=== PATIENT | female | born 1950 | race Caucasian/White ===

== ENCOUNTER 2018-06-23 14:14 | Inpatient (IN) | payer MEDICARE ==
[~2018-06-23] VITALS: Ht 162.6 cm; Wt 99.3 kg
--- NOTE | ~2018-06-23 | CN ---
PATIENT NAME:ROSSY FRIEND MEDICAL RECORD: [id number] : 54 LOCATION:D.MS Alberto2225 ADMIT DATE: 06/23/18 ACCOUNT: [id number] CONSULTING PHYSICIAN: CORINNA MATT MD REFERRING PHYSICIAN: TRISH RODRÍGUEZ MD DATE OF CONSULTATION: 06/24/2018 PSYCHIATRIC CONSULTATION IDENTIFYING DATA: The patient is 68 years old and she is admitted to the hospital on a voluntary basis. CHIEF COMPLAINT: None. HISTORY OF PRESENT ILLNESS: The patient apparently has diverticulitis and is admitted to the hospital. As an incidental finding, she has been nauseous, vomiting and very upset since her primary care doctor stopped the Haldol she has been taking for 15 years. She is now back on the Haldol, which I think is reasonable and appropriate. She has a history of being followed at the [facility] in [place] for schizophrenia and has been quite stable on her medications and for some reason, I think it was related to the overturning of staff there. She ended up with her primary care doctor who now has appropriately advised her about his concerns and has tried to taper the medications. MENTAL STATUS EXAMINATION: The patient is awake, alert and oriented to person, place, time and situation. Her mood is flat. Her affect is constricted. Thought processes are circumstantial. Memory, concentration, and abstraction abilities are mildly impaired. She denies any active intent to harm herself or others as well as overt psychotic symptoms. ASSETS: Supportive family members. LIABILITIES: Limited insight. DIAGNOSTIC IMPRESSION: Schizophrenia. PLAN: At this time, I think it is appropriate for the patient to be on Haldol. I would recommend 2 mg twice a day as a starting dose. She should have follow up with the psychiatrist. The patient is reporting depression, but she is not actually depressed. She is displaying negative symptoms associated with schizophrenia and it is different than a major depressive episode. She has had transient thoughts of self-harm, but that is in the past and certainly is not something I am acutely concerned about at this time. She has never tried to hurt herself and I think from a safety standpoint, the relative risks and benefit of the Haldol is in favor of her taking it since she has a history of becoming delusional without it and on the other hand has functioned very well with it. TRANSINT:[id number] Voice Confirmation ID: [id number] DOCUMENT ID: [id number] CONSULT REPORT [id number] ROSSY FRIEND PETER MD at 1210 CC: [id number] DICTATION DATE: 06/24/18 1312 SNOW SHOVELER: 06/24/18 1330 ADM IN [facility] [address] [place] [address]
[2018-06-23] MEDS ORDERED: ASPIRIN81 MG PO (14:24)
[2018-06-23] MEDS ORDERED: BUSPAR5 MG PO (14:24)
[2018-06-23] MEDS ORDERED: CATAPRES0.1 MG PO (14:25)
[2018-06-23] MEDS ORDERED: CATAPRES0.2 MG PO (14:25)
[2018-06-23] MEDS ORDERED: CALCIUM 250+D T1 TAB PO (14:25)
[2018-06-23] MEDS ORDERED: FOLIC ACID0.8 MG PO (14:26)
[2018-06-23] MEDS ORDERED: SYNTHROID50 MCG PO (14:26)
[2018-06-23] MEDS ORDERED: HALOPERIDOL2 MG PO (14:26)
[2018-06-23] MEDS ORDERED: COZAAR50 MG PO (14:27)
[2018-06-23] MEDS ORDERED: NAPROXEN250 MG PO (14:27)
[2018-06-23] MEDS ORDERED: TOPROL XL25 MG PO (14:27)
[2018-06-23] MEDS ORDERED: NITROSTAT0.4 MG SL (14:28)
[2018-06-23] MEDS ORDERED: ZOFRAN4 MG PO (14:28)
[2018-06-23] MEDS ORDERED: OMEPRAZOLE20 M1 PO (14:28)
[2018-06-23] MEDS ORDERED: OXYTROL PATCH1 PATCH PO (14:29)
[2018-06-23] MEDS ORDERED: PRAVACHOL40 MG PO (14:29)
[2018-06-23] MEDS ORDERED: PRAVACHOL20 MG (14:29)
[2018-06-23 14:51] LABS: BASOPHILS 0.4 % (0-2); EOSINOPHILS 1.2 % (0-7); HEMATOCRIT 38.8 % (36.0-48.0); HEMOGLOBIN 12.5 g/dL (12-16); IMMATURE GRANULOCYTES 0.3 % (0-5); LYMPHOCYTES 19.2 % (15-50); MCH 26.5 pg (26.0-34.0); MCHC 32.2 g/dL (31.0-37.0); MCV 82.4 fL (80.0-100.0); MEAN PLATELET VOLUME 9.6 fL (7.4-10.4); MONOCYTES 8.3 % (2-11); NEUTROPHILS 70.6 % (40-80); PLATELET COUNT 228 10x3/uL (130-400); RBC 4.71 10x6/uL (4.00-5.40); RDW 15.5 % (11.5-14.5); WBC 7.5 10x3/uL (4.8-10.8)
[2018-06-23 15:17] LABS: ALBUMIN 3.1 g/dL (3.4-5.0); ALKALINE PHOSPHATASE 94 U/L (46-116); ALT (SGPT) 40 U/L (10-68); BILIRUBIN - TOTAL 0.19 mg/dL (0.2-1.3); CALC OSMOLALITY 281 mosm/kg (275-300); CALCIUM 8.4 mg/dL (8.5-10.1); CARBON DIOXIDE 34.2 mmol/L (21.0-32.0); CHLORIDE - SERUM 101 mmol/L (98-107); CREATININE - SERUM 1.1 mg/dL (0.6-1.3); GLUCOSE 156 mg/dL (74-106); PROTEIN - SERUM 6.7 g/dL (6.4-8.2); PROTIME 12.8 SECONDS (11.6-15.0); SODIUM 141 mmol/L (136-145); UREA NITROGEN 7 mg/dL (7-18); eGFR NON AFRICAN AMERICAN 53 mL/min (90-120)
[2018-06-23 15:19] LABS: C-REACTIVE PROTEIN 0.8 mg/dL (0.0-0.9); LIPASE 71 U/L (73-393); PRO BNP 302 pg/mL (0-125); THYROID STIMULATING HORMONE 1.36 uIU/mL (0.36-3.74)
[2018-06-23 15:21] LABS: POTASSIUM - SERUM 2.9 mmol/L (3.5-5.1); TROPONIN-I < 0.017 ng/mL (0.000-0.060)
[2018-06-23 16:06] LABS: UDS - AMPHET NEGATIVE QUAL (NEGATIVE); UDS - BARB POSITIVE QUAL (NEGATIVE); UDS - BENZO POSITIVE QUAL (NEGATIVE); UDS - COCAINE NEGATIVE QUAL (NEGATIVE); UDS - OPIATE NEGATIVE QUAL (NEGATIVE); UDS - PCP NEGATIVE QUAL (NEGATIVE); UDS - THC NEGATIVE QUAL (NEGATIVE)
[2018-06-23 16:17] LABS: APPEARANCE CLEAR (CLEAR); BILIRUBIN NEGATIVE (NEGATIVE); COLOR YELLOW (YELLOW); GLUCOSE NEGATIVE (NEGATIVE); KETONE NEGATIVE (NEGATIVE); NITRITE NEGATIVE (NEGATIVE); PROTEIN NEGATIVE (NEGATIVE); SPECIFIC GRAVITY 1.015 (1.005-1.020); UROBILINOGEN NORMAL (NORMAL)
[2018-06-23 16:22] LABS: EPITHELIAL CELLS 0-5 /hpf (0-5); RED CELLS - URINE OCC /hpf (0-5); WHITE CELLS - URINE 0-5 /hpf (0-5)
[2018-06-23 17:19] VITALS: BP 147/063
[2018-06-23] MEDS ORDERED: HALOPERIDOL1 MG PO (19:17)
[2018-06-23] MEDS ORDERED: VALIUM5 MG PO (19:24)
[2018-06-23] MEDS ORDERED: TRAZODONE HCL100 MG PO (19:26)
[2018-06-23] MEDS ORDERED: TOPROL XL50 MG PO (20:25)
[2018-06-23 20:55] VITALS: BP 182/81
[2018-06-24] MEDS ORDERED: TYLENOL PM1 TAB PO (02:47)
[2018-06-24 03:15] VITALS: BP 182/81; BMI 37.6
[2018-06-24 04:40] VITALS: BP 187/79
[2018-06-24 07:22] LABS: BASOPHILS 0.3 % (0-2); EOSINOPHILS 1.3 % (0-7); HEMATOCRIT 37.8 % (36.0-48.0); HEMOGLOBIN 12.1 g/dL (12-16); IMMATURE GRANULOCYTES 0.1 % (0-5); MCH 26.1 pg (26.0-34.0); MCV 81.6 fL (80.0-100.0); MEAN PLATELET VOLUME 9.7 fL (7.4-10.4); MONOCYTES 10.4 % (2-11); NEUTROPHILS 71.9 % (40-80); PLATELET COUNT 236 10x3/uL (130-400); RBC 4.63 10x6/uL (4.00-5.40); RDW 15.5 % (11.5-14.5)
[2018-06-24 07:56] LABS: CARBON DIOXIDE 29.9 mmol/L (21.0-32.0); CHLORIDE - SERUM 102 mmol/L (98-107); GLUCOSE 137 mg/dL (74-106); SODIUM 142 mmol/L (136-145)
[2018-06-24 07:57] LABS: CALC OSMOLALITY 281 mosm/kg (275-300); CREATININE - SERUM 0.8 mg/dL (0.6-1.3); UREA NITROGEN 3 mg/dL (7-18); eGFR NON AFRICAN AMERICAN 76 mL/min (90-120)
[2018-06-24 07:59] LABS: POTASSIUM - SERUM 2.8 mmol/L (3.5-5.1)
[2018-06-24 08:05] VITALS: BP 181/76
[2018-06-24 11:19] VITALS: Ht 162.6 cm; Wt 99.3 kg
[2018-06-24 11:37] VITALS: BP 145/70
[2018-06-24 16:48] VITALS: BP 191/86
[2018-06-24 21:30] VITALS: BP 171/69
[2018-06-25 05:15] VITALS: BP 116/62
[2018-06-25 05:20] LABS: BASOPHILS 0.5 % (0-2); EOSINOPHILS 1.1 % (0-7); HEMATOCRIT 35.9 % (36.0-48.0); HEMOGLOBIN 11.4 g/dL (12-16); IMMATURE GRANULOCYTES 0.2 % (0-5); LYMPHOCYTES 24.2 % (15-50); MCH 26.1 pg (26.0-34.0); MCHC 31.8 g/dL (31.0-37.0); MCV 82.2 fL (80.0-100.0); MEAN PLATELET VOLUME 9.6 fL (7.4-10.4); MONOCYTES 12.2 % (2-11); NEUTROPHILS 61.8 % (40-80); PLATELET COUNT 224 10x3/uL (130-400); RBC 4.37 10x6/uL (4.00-5.40); RDW 15.7 % (11.5-14.5); WBC 6.2 10x3/uL (4.8-10.8)
[2018-06-25 05:26] LABS: ANION GAP 5.9 mmol/L (8-16); CARBON DIOXIDE 32.9 mmol/L (21.0-32.0); MAGNESIUM - SERUM 1.8 mg/dL (1.8-2.4)
[2018-06-25 05:36] LABS: POTASSIUM - SERUM 3.8 mmol/L (3.5-5.1)
[2018-06-25 21:50] VITALS: BP 101/43
[2018-06-26 05:15] VITALS: BP 150/96
[2018-06-26 05:55] LABS: BASOPHILS 0.3 % (0-2); EOSINOPHILS 1.9 % (0-7); HEMATOCRIT 37.3 % (36.0-48.0); IMMATURE GRANULOCYTES 0.2 % (0-5); LYMPHOCYTES 24.3 % (15-50); MCH 26.5 pg (26.0-34.0); MCHC 32.2 g/dL (31.0-37.0); MCV 82.5 fL (80.0-100.0); MEAN PLATELET VOLUME 10.1 fL (7.4-10.4); MONOCYTES 8.6 % (2-11); NEUTROPHILS 64.7 % (40-80); PLATELET COUNT 230 10x3/uL (130-400); RBC 4.52 10x6/uL (4.00-5.40); RDW 15.8 % (11.5-14.5); WBC 5.9 10x3/uL (4.8-10.8)
[2018-06-26 06:00] LABS: ANION GAP 10.2 mmol/L (8-16); CALCIUM 8.3 mg/dL (8.5-10.1); CARBON DIOXIDE 30.4 mmol/L (21.0-32.0); CREATININE - SERUM 0.9 mg/dL (0.6-1.3); POTASSIUM - SERUM 3.6 mmol/L (3.5-5.1)
[2018-06-26 08:29] VITALS: BP 156/67
[2018-06-26 12:04] VITALS: BP 128/59
[2018-06-26] MEDS ORDERED: FLAGYL500 MG PO (12:21)
[2018-06-26] MEDS ORDERED: LEVAQUIN750 MG PO (12:21)
[2018-06-26 16:24] VITALS: BP 115/55
== END 2018-06-26 16:52 | disposition home health service (06) | DRG 391 ==
LOC: D.ER 14:14 → D.EDHOLD 17:51 → D.MS 17:51
PROVIDERS: Family Medicine; Internal Medicine Nephrology
DX: K57.92 Diverticulitis of intestine, part unspecified, without perforation or abscess without bleeding (principal); G93.41 Metabolic encephalopathy; N17.9 Acute kidney failure, unspecified; E87.6 Hypokalemia; F20.9 Schizophrenia, unspecified; I10 Essential (primary) hypertension; F41.9 Anxiety disorder, unspecified; M51.36 Other intervertebral disc degeneration, lumbar region; K59.00 Constipation, unspecified

== ENCOUNTER 2018-08-17 22:33 | Inpatient (IN) | payer MEDICARE ==
[~2018-08-17] VITALS: Ht 162.6 cm; Wt 85.6 kg
--- NOTE | ~2018-08-17 | MORECARE ---
CASE MANAGEMENT DISCHARGE SUMMARY PATIENT: ROSSY FRIEND UNIT: [id number] ADM DATE: 08/18/18 AGE: 68 : 54 SEX: F ROOM/BED: D.9705 AUTHOR: MERCEDES,DOC PHYSICIAN: REFERRING PHYSICIAN: FRANKO RAJPUT MD DATE OF SERVICE: 08/25/18 Discharge Plan Patient Name: ROSSY FRIEND Facility: [facility]:[place] : 1950 Planned Disposition: Home with Home Health Anticipated Discharge Date: 08/25/18 Discharge Date: Expected LOS: 7 Initial Reviewer: [email or web address] Initial Review Date: 08/18/2018 Generated: 08/25/18 12:02 pm Comments DCP- Discharge Planning Updated by [email or web address]: Sonja Douglass on 08/23/18 4:[address] Late Entry 08/23/18 @ 1245 Patient Name: ROSSY FRIEND Admission Status: ER Accout number: [id number] Admission Date: 08-18-2018 : 1950 Admission Diagnosis:HYPERTENSIVE EMERGENCY Attending: FRANKO RAJPUT Current LOS: 5 Anticipated DC Date: Planned Disposition: Home Primary Insurance: MEDICARE A & B Discharge Planning Comments: CM met with patient at bedside. Patient states she plans on returning to her home with her . Patient states that she had Home Health services with [facility] prior to admission. Patient denies any discharge needs at this time. IMM explained and served 08/23/18 @ 1236. CM will continue to follow and assist as needed with discharge planning / needs. Financial Reporting Advisor: Sonja Douglass DCPIA - Discharge Planning Initial Assessment Updated by [email or web address]: Sonja Douglass on 08/23/18 5:32 pm * Is the patient Alert and Oriented? Yes * How many steps to enter\exit or inside your home? * PCP Krystina * [facility] * Preadmission Environment Home with Family * ADLs Independent * Equipment Cane * Other Equipment walker * List name and contact numbers for known caregivers / representatives who currently or will assist patient after discharge: Farhana Marrero - daughter- [phone] * Verbal permission to speak to the caregivers and representatives has been obtained from the patient. N/A * Community resources currently utilized Home Health * Please name any agencies selected above. [facility] * Additional services required to return to the preadmission environment? No * Can the patient safely return to the preadmission environment? Yes * Has this patient been hospitalized within the prior 30 days at any hospital? No External [facility]iders [facility] Next Contact Date: 08/25/2018 Service Request Date: Service Type: Resolution: Reviewer: Comments: Coverage Notice Reviewer: [email or web address] Nithya Douglass Notice Issued Date-Time: 08/23/2018 12:36 Notice Type: IM Discharge Notice Notice Delivered To: Patient Relationship to Patient: Self Rf Technician Name: Delivery Method: HAND - Hand Delivered Isamar Days: Prior Verbal Notification: Recipient Understood Notice: Yes Recipient Signature: Yes Med Rec Note Co-signed by Attending: Coverage Notice Comment: Last DP export: 08/24/18 7:30 Patient Name: ROSSY FRIEND Page 10181 at 1102 All edits/amendments must be made on the electronic document DICTATION DATE: 08/25/18 110 [employer] COUNSEL: LINDA 08/25/18 1102 RPT#: [id number] DC DATE: STATUS: ADM IN [facility] [address] [place] [address] END OF REPORT
--- NOTE | ~2018-08-17 | HEMODYNAMI ---
PATIENT:ROSSY FRIEND MEDICAL RECORD: [id number] : 54 LOCATION:[facility] D.2315 [facility]# [id number] ADMISSION DATE: 08/18/18 Generatedon:08/18/201814:59 Patient name: ROSSY FRIEND Patient #: [id number] SSN: D OB: 1950 Date of study: 08/18/2018 Page: Of Hemodynamic Procedure Report Patient Data Patient Demographics Procedure consent was obtained First Name: ROSSY Gender: Female Last Name: PHUC : 1950 [facility] Initial: K Age: 68 year(s) Patient #: [id number] Race: Unknown Additional ID: [id number] Contact details [address]: [address] [place] [address] State: [place] City: [place] Zip code: [address] Admission Admission Data Admission Date: 08/18/2018 Admission Time: 1:42 Room #: D.2315 Lab Results Lab Result Date: 08/18/2018 Lab Result Time: 0:00 Biochemistry Name Units Result Min Max BUN mg/dl 4 *-(----)-- 7 18 Creatinine mg/dl 0.8 --(-*--)-- 0.6 1.3 CBC Name Units Result Min Max Hematocrit % 42 --(*---)-- 42 54 Hemoglobin g/dl 14.3 --(*---)-- 13.5 17.5 Procedure Procedure Types Cath Procedure Diagnostic Procedure LHC LHC w/Coronaries Peripheral Cath Diagnostic Procedure Abd/Extremity Renal Bilat Renal Arteriogram Procedure Description Procedure Date Procedure Date: 08/18/2018 Procedure Start Time: 14:43 Procedure End Time: 14:59 Procedure Staff Name Function Tutu Dixon MD Performing Physician Wolf Jasso RT Monitor Paula Barillas RT Scrub Clarisa Paz RN Nurse Procedure Data Cath Procedure Fluoroscopy Diagnostic fluoroscopy Total fluoroscopy Time: 3.8 time: 3.8 min min Diagnostic fluoroscopy Total fluoroscopy dose: 443 dose: 443 mGy mGy Contrast Material Contrast Material Type Amount (ml) Isovue 300 63 Entry Location Entry Primary Successful Side Size Upsize Upsize Entry Closure Ruano ccessful Closure Location (Fr) 1 (Fr) 2 (Fr) Remarks Device Remarks Radial Right 6 Fr Mechanical artery Short Compression Estimated blood loss: 5 ml Diagnostic catheters Device Type Used For End Catheter Placement DIAGNOSTIC Dewey 110cm 5 Procedure Fr catheter ([id number]) Procedure Complications No complications Procedure Medications Medication Administration Route Dosage 0.9% NaCl I.V. 100 ml/hr Oxygen etCO2 Nasal cannula 2 l/min Lidocaine 2% added to field 20 Heparin Flush Bag added to field 2 bags (1000units/500ml NS) Radial Cocktail added to field 1 syringe (Verapomil 2mg/Nitro 400mcg/Heparin 1500units) Phenergan I.V. 25 mg Versed I.V. 2 mg Fentanyl I.V. 50 mcg Versed I.V. 1 mg Hemodynamics Rest HGB: 14.3 (g/dl) Heart Rate: 89 (bpm) Snapshots Pre Cath Intra NCS Post Cath Vital Signs Time Heart Resp SPO2 etCO2 NIBP (mmHg) Rhythm Pain Sedation Rate (ipm) (%) (mmHg) Status Level (bpm) 14:16:43 92 22 97 15 181/99(134) NSR 0 (11) 10(A) , No pain 14:22:27 89 25 96 10.6 178/87(141) NSR 0 (11) 10(A) , No pain 14:27:13 86 21 98 16 167/83(120) NSR 0 (11) 10(A) , No pain 14:31:50 83 30 97 24.2 141/74(95) NSR 0 (11) 10(A) , No pain 14:36:23 83 29 97 21.2 133/63(95) NSR 0 (11) 10(A) , No pain 14:40:55 83 25 98 31 134/68(101) NSR 0 (11) 10(A) , No pain 14:45:23 83 31 97 17.4 151/81(103) NSR 0 (11) 10(A) , No pain 14:50:02 85 29 98 17.4 142/71(104) NSR 0 (11) 9(A) , No pain 14:54:32 84 25 96 28 164/86(122) NSR 0 (11) 10(A) , No pain 14:59:09 98 25 182/95(140) NSR 0 (11) 10(A) , No pain Medications Time Medication Route Dose Verified Delivered Reason Notes E ffectiveness by by 14:18:30 0.9% NaCl I.V. 100 Tutu Clarisa used for ml/hr Destiny Paz towel weaver 14:18:36 Oxygen etCO2 2 l/min Tutu Clarisa used for Nasal Destiny Paz procedure cannula RN 14:18:41 Lidocaine 2% added 20ml Tutu Tutu for local to vial Destiny Dixon MD anesthetic field 14:18:46 Heparin Flush added 2 bags Tutuenmanuel Cam used for Bag to Destiny Dixon MD procedure (1000units/500ml field NS) 14:18:57 Radial Cocktail added 1 Tutu Tutu used for (Verapomil to syringe Destiny Dixon MD procedure 2mg/Nitro field 400mcg/Heparin 1500units) 14:27:36 Phenergan I.V. 25 mg Tutu Baya for nausea Destiny Paz RN 14:40:34 Versed I.V. 2 mg Tutu Clarisa for Destiny Paz sedation RN 14:40:47 Fentanyl I.V. 50 mcg Tutu Berriosyla for Destiny Paz sedation RN 14:46:04 Versed I.V. 1 mg Tutu Clarisa for Destiny Paz sedation financial services rep Log Time Note 13:54:27 Signed procedure consent form obtained from patient. 13:54:30 Time tracking: Regular hours (M-F 7:00 - 5:00) 13:54:34 Plan of Care:Hemodynamics will remain stable., Cardiac rhythm will remain stable., Comfort level will be maintained., Respiratory function will remain adequate., Patient/ family verbilizes understanding of procedure., Procedure tolerated without complication., Recovers from procedure without complications.. 13:54:37 Clarisa Paz RN sent for patient. Start room use. 13:54:38 Diagnostic Cath status Elective 13:54:46 H&P Date Dictated: 08/18/2018 Within 30 days and on chart., H&P Addendum completed by physician on day of procedure. (MUST COMPLETE FOR ALL OUTPATIENTS). 14:04:34 Patient received from ICU to CCL 1 Alert and oriented. Tansferred to table in Supine position. 14:04:35 Warm blankets applied, and christen hugger turned on for patient comfort. 14:04:35 Correct patient and procedure confirmed by team. 14:04:36 ECG and BP/O2 sat monitors applied to patient. 14:15:06 Vital chart was started 14:18:30 0.9% NaCl 100 ml/hr I.V. was administered by Clarisa Paz RN; used for procedure; 14:18:36 Oxygen 2 l/min etCO2 Nasal cannula was administered by Clarisa Paz RN; used for procedure; 14:18:41 Lidocaine 2% 20ml vial added to field was administered by Tutu Dixon MD; for local anesthetic; 14:18:46 Heparin Flush Bag (1000units/500ml NS) 2 bags added to field was administered by Tutu Dixon MD; used for procedure; 14:18:57 Radial Cocktail (Verapomil 2mg/Nitro 400mcg/Heparin 1500units) 1 syringe added to field was administered by Tutu Dixon MD; used for procedure; 14:21:35 Rhythm: sinus rhythm 14:21:54 Baseline sample Acquired. 14:22:51 Pre-procedure instructions explained to patient. 14:22:55 Pre-op teaching completed and patient verbalized understanding. 14:23:07 Family in patients room. 14:23:12 Patient NPO since Midnight. 14:23:32 Is the patient allergic to Iodine/contrast media? No. 14:23:49 Is patient on blood thinner?No 14:24:33 Patient not . Patient is over age 55. 14:24:50 Previous problem with sedation/anesthesia? No . 14:24:57 Snore? Yes 14:25:00 Sleep apnea? No 14:25:02 Deviated septum? No 14:25:05 Opens mouth fully? Yes 14:25:06 Sticks out tongue? Yes 14:25:14 Airway obstruction? No ? 14:25:21 Dentures? Yes ? 14:27:36 Phenergan 25 mg I.V. was administered by Clarisa Paz RN; for nausea; 14:29:43 Patient pain scale 0/10 ?. 14:29:46 Modified Riky's test Ulnar < 7 seconds 14:29:51 IV patent on arrival in left hand with 0.9% NaCl at [facility]. 14:34: Lab Result : BUN 4 mg/dl 14:: Lab Result : Creatinine 0.8 mg/dl :: Lab Result : Hemoglobin 14.3 g/dl :: Lab Result : Hematocrit 42 % 14:34:29 Lab results completed and on chart. 14:34:32 Right Radial & Right Groin area was prepped with chlora-prep and draped in sterile fashion 14:34:33 Alarms reviewed by R. N. 14:34:33 Sharps counted by scrub and verified by R.N. 14:34:37 Use device set Radial Dx or PCI 14:34:38 ACIST Syringe (36439) opened to sterile field. 14:34:39 Medline Cath Pack ([id number]) opened to sterile field. 14:34:39 Bag Decanter (2002S) opened to sterile field. 14:34:40 ACIST Hand Control (92271) opened to sterile field. 14:34:40 ACIST Manifold (25451) opened to sterile field. 14:34:41 Tegaderm 4 x 4 (1626W) opened to sterile field. 14:34:42 MBrace Wrist Support ([id number]) opened to sterile field. 14:34:44 DIAGNOSTIC WIRE .035 260cm J wire (984703) opened to sterile field. 14:34:54 SHEATH 6FR [place] (JUV026) opened to sterile field. 14:35:00 Zero performed for pressure channel P1 14:39:57 Physician arrived 14:39:58 --------ALL STOP TIME OUT------ 14:39:58 Final Timeout: patient, procedure, and site verified with staff and physician. All members of the team are in agreement. 14:40:00 Right Radial & Right Groin site verified by team. 14:40:02 Physical assessment completed. ASA score P 2 - A patient with mild systemic disease as per Tutu Dixon MD. 14:40:05 Sedation plan: IV Moderate Sedation Medication:Versed, Fentanyl 14:40:34 Versed 2 mg I.V. was administered by Clarisa Paz RN; for sedation; 14:40:47 Fentanyl 50 mcg I.V. was administered by Clarisa Paz RN; for sedation; 14:43:54 Procedure started. 14:43:54 Full Disclosure recording started 14:43:58 Local anesthetic to right radial artery with Lidocaine 2% by Tutu Dixon MD.INITIAL ACCESS ONLY 14:44:29 A 6 Fr Short sheath was inserted into the Right Radial artery 14:45:01 A DIAGNOSTIC Dewey 110cm 5 Fr catheter (547581) was advanced over the wire and used for Procedure. 14:45:08 Micro Hi-Rei Berenstein Catheter ([id number]) opened to sterile field. 14:46:04 Versed 1 mg I.V. was administered by Clarisa Paz RN; for sedation; 14:46:21 LV gram done using REY 14:46:24 Injector settings: Ml/sec: 5, Volume: 15, 14:46:30 EF : 60 % 14:46:31 LCA angiography performed. 14:47:23 RCA angiography performed. 14:49:26 GLIDE WIRE ANGLE 260cm (DY1034) opened to sterile field. 14:50:25 Catheter exchanged over wire. 14:50:26 glide wire wire advanced. 14:50:29 Wire removed. 14:52:17 Right renal angiography performed. 14:52:36 Left renal angiography performed. 14:53:15 Catheter removed. 14:53:18 TR BAND Standard ([id number]) opened to sterile field. 14:53:25 Sheath removed intact; hemostasis achieved with Mechanical Compression to the Right Radial artery. 14:54:17 Procedure ended.(Physican Out) 14:55:22 Fluoroscopy time 03.80 minutes. 14:55:26 Fluoroscopy dose: 443 mGy 14:55:26 Flurop Dose total: 443 14:55:34 Contrast amount:Isovue 300 63ml. 14:55:35 Sharps counted by scrub and verified by R.N. 14:55:43 TR band inflated with 10cc of air. 14:55:44 Insertion/operative site no bleeding no hematoma. 14:55:48 Post-procedure physical assessment completed. ASA score P 2 - A patient with mild systemic disease as per Tutu Dixon MD. 14:55:50 Post procedure rhythm: unchanged. 14:55:53 Estimated blood loss: 5 ml 14:55:56 Post procedure instruction explained to patient.Patient verbalizes understanding. 14:55:57 Patient needs reinforcement of post procedure teaching. 14:56:17 Procedure type changed to Cath procedure, Diagnostic procedure, LHC, LHC w/Coronaries, Peripheral Cath Diagnostic Procedure, Abd/Extremity, Renal, Bilat Renal Arteriogram 14:58:44 Procedure and supply charges have been captured, reviewed, submitted and are correct. 14:58:46 Procedure Complication : No complications 14:58:52 Vital chart was stopped 14:58:53 See physician's report for complete and final results. 14:58:55 Report given to ICU. 14:58:57 Patient transfered to ICU with Stretcher. 14:58:59 Procedure ended. 14:58:59 Full Disclosure recording stopped 14:59:03 End room use (Document Last) Device Usage Item Name Manufacture Quantity Catalog Hospital Part Current Minima l Lot# / Number Charge Number Stock Stock Serial# Code ACIST Acist 1 08737 176036 948114 470480 20 Syringe Medical (34567) Systems Inc Medline Cath Medline 1 [id number] 836562 52332 720988 5 Pack ([id number]) Bag Decanter Microtek 1 2002S 416627 46912 169569 5 (2002S) Medical Inc. ACIST Hand Acist 1 34297 901326 370622 163057 5 Control Medical (04788) Systems Inc ACIST Acist 1 34575 014172 022946 108354 5 Manifold Medical (51409) Systems Inc Tegaderm 4 x 3M 1 1626W 228272 321024 518739 5 4 (1626W) MBrace Wrist Advanced 1 140-0250-00 868501 93983 765387 5 Support Vascular ([id number]) Dynamics DIAGNOSTIC [place] 1 031033 828906 624791 907208 30 WIRE .035 260cm J wire (042287) SHEATH 6FR Terumo 1 VZB677 599006 761818 534346 40 [place] (MMJ292) DIAGNOSTIC Terumo 1 40-1013 919479 677237 191860 5 Dewey 110cm 5 Fr catheter (623850) GLIDE WIRE Terumo 1 IO3586 302783 149271 154623 5 ANGLE 260cm (LR6732) Micro Hi-Rei [place] 1 [id number] 269116 228902 197463 5 Tectura Scientific Catheter ([id number]) TR BAND Terumo 1 PHV79-OKD 254257 928767 326598 40 Standard ([id number]) Signature Audit [place] Stage Time Signature Unsigned Intra-Procedure 08/18/2018 Wolf Jasso 2:59:37 PM RT(R) Signatures Monitor : Wolf Jasso RT Signature : Date : Time : [place] [id number] [place] [address]
--- NOTE | ~2018-08-17 | MORECARE ---
CASE MANAGEMENT DISCHARGE SUMMARY PATIENT: ROSSY FRIEND UNIT: [id number] ADM DATE: 08/18/18 AGE: 68 : 54 SEX: F ROOM/BED: D.3756 AUTHOR: MERCEDES,DOC PHYSICIAN: REFERRING PHYSICIAN: FRANKO RAJPUT MD DATE OF SERVICE: 08/25/18 Discharge Plan Patient Name: ROSSY FRIEND Facility: [facility]:[place] : 1950 Planned Disposition: Home with Home Health Anticipated Discharge Date: 08/25/18 Discharge Date: Expected LOS: 7 Initial Reviewer: [email or web address] Initial Review Date: 08/18/2018 Generated: 08/25/18 12:18 pm Comments DCP- Discharge Planning Updated by [email or web address]: Sonja Douglass on 08/23/18 4:[address] Late Entry 08/23/18 @ 1245 Patient Name: ROSSY FRIEND Admission Status: ER Accout number: [id number] Admission Date: 08-18-2018 : 1950 Admission Diagnosis:HYPERTENSIVE EMERGENCY Attending: FRANKO RAJPUT Current LOS: 5 Anticipated DC Date: Planned Disposition: Home Primary Insurance: MEDICARE A & B Discharge Planning Comments: CM met with patient at bedside. Patient states she plans on returning to her home with her . Patient states that she had Home Health services with [facility] prior to admission. Patient denies any discharge needs at this time. IMM explained and served 08/23/18 @ 1236. CM will continue to follow and assist as needed with discharge planning / needs. Prop Setter: Sonja Douglass DCPIA - Discharge Planning Initial Assessment Updated by [email or web address]: Sonja Douglass on 08/23/18 5:32 pm * Is the patient Alert and Oriented? Yes * How many steps to enter\exit or inside your home? * PCP Krystina * [facility] * Preadmission Environment Home with Family * ADLs Independent * Equipment Cane * Other Equipment walker * List name and contact numbers for known caregivers / representatives who currently or will assist patient after discharge: Farhana Marrero - daughter- [phone] * Verbal permission to speak to the caregivers and representatives has been obtained from the patient. N/A * Community resources currently utilized Home Health * Please name any agencies selected above. [facility] * Additional services required to return to the preadmission environment? No * Can the patient safely return to the preadmission environment? Yes * Has this patient been hospitalized within the prior 30 days at any hospital? No Coverage Notice Reviewer: [email or web address] Nithya Douglass Notice Issued Date-Time: 08/23/2018 12:36 Notice Type: IM Discharge Notice Notice Delivered To: Patient Relationship to Patient: Self Cloth Worker Name: Delivery Method: HAND - Hand Delivered Isamar Days: Prior Verbal Notification: Recipient Understood Notice: Yes Recipient Signature: Yes Med Rec Note Co-signed by Attending: Coverage Notice Comment: Last DP export: 08/25/18 10:02 Patient Name: ROSSY FRIEND Page 65469 at 1118 All edits/amendments must be made on the electronic document DICTATION DATE: 08/25/181117 SHEEP FARM WORKER: LINDA 08/25/18 111 RPT#: [id number] DC DATE: STATUS: ADM IN [facility] [address] [place] [address] END OF REPORT
--- NOTE | ~2018-08-17 | MORECARE ---
CASE MANAGEMENT DISCHARGE SUMMARY PATIENT: ROSSY FRIEND UNIT: [id number] ADM DATE: 08/18/18 AGE: 68 : [birth year] SEX: F ROOM/BED: D.4817 AUTHOR: RERE LONG PHYSICIAN: REFERRING PHYSICIAN: FRANKO RAJPUT MD DATE OF SERVICE: 08/25/18 Discharge Plan Patient Name: ROSSY FRIEND Facility: [facility]:[place] : 1950 Planned Disposition: Home with Home Health Anticipated Discharge Date: 08/25/18 Discharge Date: 08/25/2018 Expected LOS: 7 Initial Reviewer: [email or web address] Initial Review Date: 08/18/2018 Generated: 08/25/18 1:00 pm Comments DCP- Discharge Planning Updated by [email or web address]: Gato Roberts on 08/25/18 10:[address] Patient Name: ROSSY FRIEND Encounter No: [id number] : 1950 Primary Insurance: MEDICARE A & B Anticipated DC Date: 08-25-2018 Planned Disposition: Home with Home Health External Planned Provider: [facility] DCP follow-up note: CM MET WITH PT IN ROOM TO DISCUSS DISCHARGE NEEDS AND PLANNING. CM DISCUSSED AVAILABILITY OF HOME HEALTH, REHAB SERVICES AND MEDICAL EQUIPMENT. PT DENIES DISCHARGE NEEDS OTHER THAN [facility]ION OF [facility] AND THERAPY. CM CALLED [facility], , SPOKE TO ANA WHO WILL PLACE PT ON SCHEDULE FOR RESUMPTION. CM FAXED DISCHARGE INFORMATION TO [facility], . VICE PRESIDENT RESEARCH NURSE NOTIFIED. PT DISCHARGING HOME WITH [facility] RESUMPTION FOR HOME HEALTH SERVICES. SPOUSE TO TRANSPORT HOME AT DISCHARGE. PARAMJIT Grimm DCP- Discharge Planning Updated by [email or web address]: Sonja Douglass on 08/23/18 4:[address] Late Entry 08/23/18 @ 1245 Patient Name: ROSSY FRIEND Admission Status: ER Accout number: [id number] Admission Date: 08-18-2018 : 1950 Admission Diagnosis:HYPERTENSIVE EMERGENCY Attending: FRANKO RAJPUT Current LOS: 5 Anticipated DC Date: Planned Disposition: Home Primary Insurance: MEDICARE A & B Discharge Planning Comments: CM met with patient at bedside. Patient states she plans on returning to her home with her . Patient states that she had Home Health services with [facility] prior to admission. Patient denies any discharge needs at this time. IMM explained and served 08/23/18 @ 1236. CM will continue to follow and assist as needed with discharge planning / needs. Veterans Services Specialist: Sonja Douglass DCPIA - Discharge Planning Initial Assessment Updated by [email or web address]: Sonja Douglass on 08/23/18 5:32 pm * Is the patient Alert and Oriented? Yes * How many steps to enter\exit or inside your home? * PCP Krystina * [facility] * Preadmission Environment Home with Family * ADLs Independent * Equipment Cane * Other Equipment walker * List name and contact numbers for known caregivers / representatives who currently or will assist patient after discharge: Farhana Marrero - [facility]- [phone] * Verbal permission to speak to the caregivers and representatives has been obtained from the patient. N/A * Community resources currently utilized Home Health * [facility] * Additional services required to return to the preadmission environment? No * Can the patient safely return to the preadmission environment? Yes * Has this patient been hospitalized within the prior 30 days at any hospital? No Coverage Notice Reviewer: [email or web address] - Sonja Douglass Notice Issued Date-Time: 08/23/2018 12:36 Notice Type: IM Discharge Notice Notice Delivered To: Patient Relationship to Patient: Self Instrument Mechanic Name: Delivery Method: HAND - Hand Delivered Isamar Days: Prior Verbal Notification: Recipient Understood Notice: Yes Recipient Signature: Yes Med Rec Note Co-signed by Attending: Coverage Notice Comment: Last DP export: 08/25/18 10:18 Patient Name: ROSSY FRIEND Page [id number] at 1200 All edits/amendments must be made on the electronic document DICTATION DATE: 08/25/18 1200 STOCK LAYER: LINDA 08/25/18 1200 RPT#: [id number] DC DATE:08/25/18 STATUS: DIS IN [facility] [address] [place] [address] END OF REPORT
--- NOTE | ~2018-08-17 | EC ---
PATIENT:ROSSY FRIEND DATE OF SERVICE: 08/18/18 SEX: F MEDICAL RECORD: [id number] DATE OF : [birth year] LOCATION:[place] [address] AGE OF PATIENT: 68 ADMISSION DATE: 08/18/18 REFERRING PHYSICIAN: INTERPRETING PHYSICIAN: TOBIN DIXON MD ECHOCARDIOGRAM REPORT ECHO CHARGES 4 ECHO COMPLETE Date: 08/18/18 CLINICAL DIAGNOSIS: HTN ECHOCARDIOGRAPHIC MEASUREMENTS (adult normal given) AC root (d.<3.7cm) 3.8 cm LV Septum d (<1.2 cm> 1.6 cm Valve Excursion 1.9 cm LV Septum (systole) 1.9 cm Left Atria (s.<4.0cm> 3.2 cm LVPW d(<1.2cm) 1.7 cm RV (d.<2.3cm) 2.3 cm LVPW (sytole) 2.0 cm LV diastole(<5.6CM) 4.3 cm MV E-F(>70mm/sec) cm LV systole 3.0 cm LVOT Diameter 1.8 cm MV exc.(>10mm) 1.5 cm Est.ejection fraction (50-75%) % DOPPLER: LVIT cm/sec A 87.0 cm/sec E 59.0 cm/sec LA cm/sec RVSP 27 mmHg LVOT 143 cm/sec AOP1/2T m/s Asc. Ao 202 cm/sec RVOT 123 cm/sec RA cm/sec PA 163 cm/sec AV Gradient Peak 16.28mmHg AV Mean 8.78 mmHg AV Area 1.9 cm MV Gradient Peak 3.62 mmHg MV Mean 1.56 mmHg MV Area cm COMMENTS: Compound Finisher: Galen ANDREW Coat Joiner: 1 Dr. Dixon TAPE# PACS Pericardial Effusion N DATE OF SERVICE: 08/18/2018 PROCEDURE: Echocardiogram. FINDINGS: 1. Left ventricular chamber size is within normal limits. Left ventricular systolic function is normal. Overall ejection fraction estimated at 65%. 2. Left ventricular hypertrophy is present, concentric with no evidence of outflow tract hypertrophy, compatible with hypertensive heart disease. 3. Left atrium, right atrium, and right ventricle chamber sizes are within ECHOCARDIOGRAM REPORT [id number] ROSSY FRIEND normal limits. 4. Valvular structures have normal structure and motion. 5. Doppler interrogation reveals hzijo-gu-eqrn aortic insufficiency, nhyfn-nw-qwou mitral regurgitation, mpplq-cq-wizu tricuspid regurgitation, no other valvular insufficiency or stenosis and pulmonary systolic pressure is normal, estimated at 27 mmHg. 6. No evidence of pericardial effusion or left ventricular thrombus. TRANSINT:[id number] Voice Confirmation ID: [id number] DOCUMENT ID: [id number] TOBIN DIXON MD at 1031 CC: [id number] DICTATION DATE: 08/18/18 1358 FINISHER FIBERGLASS BOAT PARTS: 08/18/18 1458 ADM IN [facility] [address] [place] [id number]
--- NOTE | ~2018-08-17 | CN ---
PATIENT NAME:ROSSY FRIEND MEDICAL RECORD: [id number] : [birth year] LOCATION:[place] ADMIT DATE: 08/18/18 ACCOUNT: [id number] CONSULTING PHYSICIAN: CORINNA MATT MD REFERRING PHYSICIAN: FRANKO RAJPUT MD DATE OF CONSULTATION: 08/21/2018 PSYCHIATRIC CONSULTATION IDENTIFYING DATA: The patient is 68 years old and she is admitted to the hospital on a voluntary basis. HISTORY: She apparently presented with shortness of breath, some chest discomfort, and an elevated troponin. Apparently, she has undergone cardiac catheterization and it is normal. Her primary care doctor has consulted me to evaluate anxiety. The patient was sleeping and looked very calm when I woke her up, but she said yes she does have a great deal of anxiety and she complains about trouble sleeping. She complains of trouble initiating and maintaining sleep. She does take Valium, trazodone, and Haldol along with some Wellbutrin. She has no thoughts of harming herself or others and no psychotic symptoms. She does not see a psychiatrist. This group of psychoactive medications is being prescribed by her primary care doctor and she tells me that she did see a psychiatrist in [place] years ago, but she cannot even remember his name. The medications are just being continued by Dr. Rajput. MENTAL STATUS EXAMINATION: The patient is awake; alert; and oriented to person, place, time, and situation. Her mood is euthymic. Her affect is appropriate. Thought processes are slowed but goal directed. Memory, concentration, and abstraction abilities are mildly impaired. She denies any intent to harm herself or others as well as overt psychotic symptoms. ASSESSMENT: Adjustment disorder with mixed emotional features. PLAN: At this time, the patient shows no evidence of acute or direct dangerousness that would require inpatient psychiatric treatment. She is not delusional. She has no thoughts of harming herself or others. I just simply do not see any element of dangerousness. With regard to her anxiety, it may certainly be present and if she has been diagnosed with an anxiety disorder by either her primary care doctor or a psychiatrist some time ago, I will accept that; but the patient is not displaying symptoms of anxiety objectively observed currently. She wants me to do something with her medicines that will help her sleep better. I have some significant concerns about what she is taking. Haldol should only be given to people with some sort of a disorder in the thinking disorder spectrum and there are a couple of other exceptions where it might be appropriate; but given the long-term risk of tardive dyskinesia, I would be reluctant to prescribe that unless there is history that she did not give me because she does not know or understand it or I would have her see a psychiatrist as an outpatient. There are also concerns about 15 mg of Valium a day and the potential for addiction, but again that is a risk that is commonly weighed and evaluated by primary care doctors everyday. The Haldol is what I would have reservations about unless there is again information that I do not have access to. With regard to the anxiety, I think that the most appropriate thing to do would be stop the Wellbutrin. One of metabolites of Wellbutrin is a known amphetamine and is often used for people who have lethargic depression or even elderly people who need some kind of a stimulant to be more active. In a CONSULT REPORT [id number] ROSSY FRIEND patient who is complaining of anxiety, especially one who is taking the other medicine than she is, stopping the Wellbutrin and changing it to an SSRI is not unreasonable. Again, unless there is history I am not aware of, I think it would be best to refer her to outpatient psychiatric care, which I understand is limited in this area, but the [facility] or even possibly having her drive into [place] would be reasonable alternatives. She does live in [place] and there is a community mental health center, the [facility] in [place], which is 15 minutes from [place]. There are no acute needs related to this hospitalization. TRANSINT:[id number] Voice Confirmation ID: [id number] DOCUMENT ID: [id number] CORINNA MATT MD at 1203 CC: [id number] DICTATION DATE: 08/21/18 1539 TAX AUDIT MANAGER: 08/21/18 1734 ADM IN [facility] [address] [place] [address]
--- NOTE | ~2018-08-17 | MORECARE ---
CASE MANAGEMENT DISCHARGE SUMMARY PATIENT: ROSSY FRIEND UNIT: [id number] ADM DATE: 08/18/18 AGE: 68 : 54 SEX: F ROOM/BED: D.0492 AUTHOR: MERCEDES,DOC PHYSICIAN: REFERRING PHYSICIAN: FRANKO RAJPUT MD DATE OF SERVICE: 08/24/18 Discharge Plan Patient Name: ROSSY FRIEND Facility: [facility]:[place] : 1950 Planned Disposition: Home Anticipated Discharge Date: Discharge Date: Expected LOS: Initial Reviewer: [email or web address] Initial Review Date: 08/18/2018 Generated: 08/24/18 9:30 am Comments DCP- Discharge Planning Updated by [email or web address]: Sonja Douglass on 08/23/18 4:[address] Late Entry 08/23/18 @ 1245 Patient Name: ROSSY FRIEND Admission Status: ER Accout number: [id number] Admission Date: 08-18-2018 : 1950 Admission Diagnosis:HYPERTENSIVE EMERGENCY Attending: FRANKO RAJPUT Current LOS: 5 Anticipated DC Date: Planned Disposition: Home Primary Insurance: MEDICARE A & B Discharge Planning Comments: CM met with patient at bedside. Patient states she plans on returning to her home with her . Patient states that she had Home Health services with [facility] prior to admission. Patient denies any discharge needs at this time. IMM explained and served 08/23/18 @ 1236. CM will continue to follow and assist as needed with discharge planning / needs. Carbon Setter: Sonja Douglass DCPIA - Discharge Planning Initial Assessment Updated by [id number]: Sonja Douglass on 08/23/18 5:32 pm * Is the patient Alert and Oriented? Yes * How many steps to enter\exit or inside your home? * PCP Krystina * [facility] * Preadmission Environment Home with Family * ADLs Independent * Equipment Cane * Other Equipment walker * List name and contact numbers for known caregivers / representatives who currently or will assist patient after discharge: Farhana Marrero - daughter- [phone] * Verbal permission to speak to the caregivers and representatives has been obtained from the patient. N/A * Community resources currently utilized Home Health * [facility]. [facility] * Additional services required to return to the preadmission environment? No * Can the patient safely return to the preadmission environment? Yes * Has this patient been hospitalized within the prior 30 days at any hospital? No Coverage Notice Reviewer: [id number] Nithya Douglass Notice Issued Date-Time: 08/23/2018 12:36 Notice Type: IM Discharge Notice Notice Delivered To: Patient Relationship to Patient: Self Track Rider Name: Delivery Method: HAND - Hand Delivered Isamar Days: Prior Verbal Notification: Recipient Understood Notice: Yes Recipient Signature: Yes Med Rec Note Co-signed by Attending: Coverage Notice Comment: Last DP export: 08/23/18 4:38 Patient Name: ROSSY FRIEND Page 23423 at 0830 All edits/amendments must be made on the electronic document DICTATION DATE: 08/24/18828 FOREST RANGER TECHNICIAN: LINDA 08/24/18828 RPT#: [id number] DC DATE: STATUS: ADM IN [facility] [address] [place] [address] END OF REPORT
--- NOTE | ~2018-08-17 | MORECARE ---
CASE MANAGEMENT DISCHARGE SUMMARY PATIENT: ROSSY FRIEND UNIT: [id number] ADM DATE: 08/18/18 AGE: 68 : 54 SEX: F ROOM/BED: D.5420 AUTHOR: MERCEDES,DOC PHYSICIAN: REFERRING PHYSICIAN: FRANKO RAJPUT MD DATE OF SERVICE: 08/23/18 Discharge Plan Patient Name: ROSSY FRIEND Facility: [facility]:[place] : 1950 Planned Disposition: Home Anticipated Discharge Date: Discharge Date: Expected LOS: Initial Reviewer: [email or web address] Initial Review Date: 08/18/2018 Generated: 08/23/18 6:38 pm Comments DCP- Discharge Planning Updated by [email or web address]: Sonja Douglass on 08/23/18 4:[address] Late Entry 08/23/18 @ 1245 Patient Name: ROSSY FRIEND Admission Status: ER Accout number: [id number] Admission Date: 08-18-2018 : 1950 Admission Diagnosis:HYPERTENSIVE EMERGENCY Attending: FRANKO RAJPUT Current LOS: 5 Anticipated DC Date: Planned Disposition: Home Primary Insurance: MEDICARE A & B Discharge Planning Comments: CM met with patient at bedside. Patient states she plans on returning to her home with her . Patient states that she had Home Health services with [facility] prior to admission. Patient denies any discharge needs at this time. IMM explained and served 08/23/18 @ 1236. CM will continue to follow and assist as needed with discharge planning / needs. Obgyn Specialist: Sonja Douglass DCPIA - Discharge Planning Initial Assessment Updated by [id number]: Sonja Douglass on 08/23/18 5:32 pm * Is the patient Alert and Oriented? Yes * How many steps to enter\exit or inside your home? * PCP Krystina * [facility] * Preadmission Environment Home with Family * ADLs Independent * Equipment Cane * Other Equipment walker * List name and contact numbers for known caregivers / representatives who currently or will assist patient after discharge: Farhana Marrero - daughter- [phone] * Verbal permission to speak to the caregivers and representatives has been obtained from the patient. N/A * Community resources currently utilized Home Health * [facility] * Additional services required to return to the preadmission environment? No * Can the patient safely return to the preadmission environment? Yes * Has this patient been hospitalized within the prior 30 days at any hospital? No Patient Name: ROSSY FRIEND Page 02411 at 1738 All edits/amendments must be made on the electronic document DICTATION DATE: 08/23/181737 HOUSEHOLD WORKER: LINDA 08/23/181737 RPT#: [id number] DC DATE: STATUS: ADM IN [facility] [address] [place] [address] END OF REPORT
[~2018-08-17 22:33] MED LIST: ASPIRIN81 MG PO; BUSPAR5 MG PO; CALCIUM 250+D T1 TAB PO; CATAPRES0.1 MG PO; CATAPRES0.2 MG PO; COZAAR50 MG PO; FLAGYL500 MG PO; FOLIC ACID0.8 MG PO; HALOPERIDOL1 MG PO; HALOPERIDOL2 MG PO; LEVAQUIN750 MG PO; NAPROXEN250 MG PO; NITROSTAT0.4 MG SL; OMEPRAZOLE20 M1 PO; OXYTROL PATCH1 PATCH PO; PRAVACHOL20 MG; PRAVACHOL40 MG PO; SYNTHROID50 MCG PO; TOPROL XL25 MG PO; TOPROL XL50 MG PO; TRAZODONE HCL100 MG PO; TYLENOL PM1 TAB PO; VALIUM5 MG PO; ZOFRAN4 MG PO
[2018-08-17 23:52] LABS: BASOPHILS 0.1 % (0-2); EOSINOPHILS 0.3 % (0-7); HEMOGLOBIN 14.3 g/dL (12-16); IMMATURE GRANULOCYTES 0.2 % (0-5); LYMPHOCYTES 12.3 % (15-50); MCH 26.9 pg (26.0-34.0); MCV 78.9 fL (80.0-100.0); MEAN PLATELET VOLUME 10.1 fL (7.4-10.4); MONOCYTES 5.6 % (2-11); NEUTROPHILS 81.5 % (40-80); PLATELET COUNT 245 10x3/uL (130-400); RBC 5.32 10x6/uL (4.00-5.40); RDW 14.2 % (11.5-14.5); WBC 8.8 10x3/uL (4.8-10.8)
[2018-08-18] VITALS (27 sets, daily range): BP systolic 95–234; BP diastolic 41–898; Ht 162.6 cm; Wt 85.6 kg
[2018-08-18 00:03] LABS: APTT 27.1 SECONDS (22.8-39.4); PROTIME 12.8 SECONDS (11.6-15.0)
[2018-08-18 00:28] LABS: ALBUMIN 3.4 g/dL (3.4-5.0); ALKALINE PHOSPHATASE 122 U/L (46-116); ALT (SGPT) 34 U/L (10-68); CALC OSMOLALITY 269 mosm/kg (275-300); CALCIUM 9.6 mg/dL (8.5-10.1); CARBON DIOXIDE 26.9 mmol/L (21.0-32.0); CHLORIDE - SERUM 95 mmol/L (98-107); CKMB 0.9 U/L (0.0-3.6); CREATINE KINASE 58 UL (21-215); CREATININE - SERUM 0.8 mg/dL (0.6-1.3); GLUCOSE 150 mg/dL (74-106); MAGNESIUM - SERUM 1.7 mg/dL (1.8-2.4); PROTEIN - SERUM 7.9 g/dL (6.4-8.2); SODIUM 135 mmol/L (136-145); UREA NITROGEN 4 mg/dL (7-18); eGFR NON AFRICAN AMERICAN 76 mL/min (90-120)
[2018-08-18 00:30] LABS: POTASSIUM - SERUM 2.5 mmol/L (3.5-5.1); TROPONIN-I 0.113 ng/mL (0.000-0.060)
[2018-08-19] VITALS (24 sets, daily range): BP systolic 98–157; BP diastolic 52–86
[2018-08-19 03:38] LABS: BASOPHILS 0.1 % (0-2); EOSINOPHILS 0.6 % (0-7); HEMATOCRIT 37.2 % (36.0-48.0); IMMATURE GRANULOCYTES 0.1 % (0-5); LYMPHOCYTES 29.1 % (15-50); MCH 26.4 pg (26.0-34.0); MCHC 32.3 g/dL (31.0-37.0); MEAN PLATELET VOLUME 10.1 fL (7.4-10.4); MONOCYTES 10.9 % (2-11); NEUTROPHILS 59.2 % (40-80); PLATELET COUNT 217 10x3/uL (130-400); RBC 4.54 10x6/uL (4.00-5.40); RDW 15.2 % (11.5-14.5)
[2018-08-19 03:44] LABS: MCV 81.9 fL (80.0-100.0)
[2018-08-19 03:50] LABS: ANION GAP 7.3 mmol/L (8-16); CALCIUM 8.5 mg/dL (8.5-10.1); CARBON DIOXIDE 30.7 mmol/L (21.0-32.0); CREATININE - SERUM 0.9 mg/dL (0.6-1.3)
[2018-08-20] VITALS (24 sets, daily range): BP systolic 115–176; BP diastolic 46–101
[2018-08-20 08:56] LABS: BASOPHILS 0.3 % (0-2); EOSINOPHILS 1.3 % (0-7); HEMATOCRIT 36.2 % (36.0-48.0); HEMOGLOBIN 11.6 g/dL (12-16); IMMATURE GRANULOCYTES 0.3 % (0-5); LYMPHOCYTES 17.7 % (15-50); MCH 26.4 pg (26.0-34.0); MCV 82.3 fL (80.0-100.0); MEAN PLATELET VOLUME 10.4 fL (7.4-10.4); MONOCYTES 7.7 % (2-11); NEUTROPHILS 72.7 % (40-80); PLATELET COUNT 195 10x3/uL (130-400); RDW 15.3 % (11.5-14.5)
[2018-08-20 08:57] LABS: CALC OSMOLALITY 276 mosm/kg (275-300); CALCIUM 8.4 mg/dL (8.5-10.1); CARBON DIOXIDE 26.4 mmol/L (21.0-32.0); CHLORIDE - SERUM 103 mmol/L (98-107); CREATININE - SERUM 0.7 mg/dL (0.6-1.3); GLUCOSE 116 mg/dL (74-106); POTASSIUM - SERUM 3.5 mmol/L (3.5-5.1); SODIUM 139 mmol/L (136-145); eGFR NON AFRICAN AMERICAN 89 mL/min (90-120)
[2018-08-20 08:58] LABS: UREA NITROGEN 6 mg/dL (7-18)
[2018-08-21] VITALS (24 sets, daily range): BP systolic 125–192; BP diastolic 57–97
[2018-08-21 05:07] LABS: APPEARANCE CLEAR (CLEAR); BILIRUBIN NEGATIVE (NEGATIVE); COLOR YELLOW (YELLOW); GLUCOSE NEGATIVE (NEGATIVE); KETONE NEGATIVE (NEGATIVE); NITRITE NEGATIVE (NEGATIVE); PROTEIN NEGATIVE (NEGATIVE); UROBILINOGEN NORMAL (NORMAL)
[2018-08-22] VITALS (18 sets, daily range): BP systolic 119–183; BP diastolic 62–106
[2018-08-23 03:00] VITALS: BP 135/69
[2018-08-23 07:00] VITALS: BP 147/92
[2018-08-23 11:00] VITALS: BP 133/67
[2018-08-23 16:03] VITALS: BP 166/79
[2018-08-23 20:00] VITALS: BP 149/76
[2018-08-24 04:00] VITALS: BP 150/68
[2018-08-24 08:22] VITALS: BP 154/71
[2018-08-24 13:18] VITALS: BP 156/73
[2018-08-24 17:13] VITALS: BP 188/89
[2018-08-24 21:57] VITALS: BP 165/62
[2018-08-25 01:04] VITALS: BP 119/62
[2018-08-25 05:40] VITALS: BP 128/72
[2018-08-25] MEDS ORDERED: TRAZODONE HCL100 MG PO (07:53)
[2018-08-25] MEDS ORDERED: WELLBUTRIN XL150 M1 PO (07:53)
[2018-08-25 09:39] VITALS: BP 158/75
== END 2018-08-25 11:26 | disposition home health service (06) | DRG 287 ==
LOC: D.ER 22:33 → D.ICU 08-18 01:42 → D.M2 08-23 14:39 → D.SDCHOLD 08-25 07:35 → D.M2 08-25 07:36
PROVIDERS: Family Medicine; Internal Medicine Interventional Cardiology
PROC: 4A023N7 Measurement of Cardiac Sampling and Pressure, Left Heart, Percutaneous Approach (ICD-10-PCS; principal; 2018-08-18 13:54)
PROC: B2111ZZ Fluoroscopy of Multiple Coronary Arteries using Low Osmolar Contrast (ICD-10-PCS; 2018-08-18 13:54)
DX: I16.1 Hypertensive emergency (principal); G47.33 Obstructive sleep apnea (adult) (pediatric); K21.9 Gastro-esophageal reflux disease without esophagitis; F41.8 Other specified anxiety disorders; R26.81 Unsteadiness on feet; E78.5 Hyperlipidemia, unspecified; K59.09 Other constipation; R79.89 Other specified abnormal findings of blood chemistry; R53.81 Other malaise; F43.20 Adjustment disorder, unspecified; F20.9 Schizophrenia, unspecified; Z91.19 Patient's noncompliance with other medical treatment and regimen; R53.1 Weakness; K64.8 Other hemorrhoids; R94.31 Abnormal electrocardiogram [ECG] [EKG]

== ENCOUNTER 2020-05-06 23:11 | Emergency (ER) | payer MEDICARE ==
[~2020-05-06] VITALS: Ht 162.6 cm; Wt 97.3 kg
[~2020-05-06 23:11] MED LIST changes: +WELLBUTRIN XL150 M1 PO
[2020-05-06 23:13] VITALS: Ht 162.6 cm; Wt 97.3 kg
[2020-05-06 23:51] LABS: HEMATOCRIT 44.6 % (36.0-48.0); HEMOGLOBIN 14.2 g/dL (12-16); LYMPHOCYTES 15.2 % (15-50); MCH 26.7 pg (26.0-34.0); MCHC 31.8 g/dL (31.0-37.0); MEAN PLATELET VOLUME 8.6 fL (7.4-10.4); NEUTROPHILS 79.5 % (40-80); RBC 5.31 10x6/uL (4.00-5.40); RDW 14.4 % (11.5-14.5); WBC 13.8 10x3/uL (4.8-10.8)
[2020-05-06 23:59] LABS: PLATELET COUNT 304 10x3/uL (130-400)
[2020-05-07 00:05] LABS: ANION GAP 14.1 mmol/L (8-16); CALCIUM 9.6 mg/dL (8.5-10.1); CARBON DIOXIDE 26.1 mmol/L (21.0-32.0); CREATININE - SERUM 1.3 mg/dL (0.6-1.3); POTASSIUM - SERUM 4.2 mmol/L (3.5-5.1)
[2020-05-07 00:08] LABS: BILIRUBIN NEGATIVE (NEGATIVE); GLUCOSE NEGATIVE (NEGATIVE); KETONE NEGATIVE (NEGATIVE); NITRITE NEGATIVE (NEGATIVE); UROBILINOGEN NORMAL (NORMAL)
[2020-05-07 00:11] LABS: ALBUMIN 3.7 g/dL (3.4-5.0); BILIRUBIN - TOTAL 0.46 mg/dL (0.2-1.3); PROTEIN - SERUM 7.7 g/dL (6.4-8.2)
[2020-05-07] MEDS ORDERED: CHRONULAC30 ML PO (02:17)
[2020-05-07 02:25] VITALS: BP 144/90
== END 2020-05-07 02:25 | disposition home or self-care (01) ==
LOC: D.ER 23:11
PROVIDERS: Family Medicine
DX: K59.00 Constipation, unspecified (principal); I10 Essential (primary) hypertension

== ENCOUNTER 2020-05-15 14:57 | Emergency (ER) | payer MEDICARE ==
[~2020-05-15] VITALS: Ht 162.6 cm; Wt 97.7 kg
[~2020-05-15 14:57] MED LIST changes: +CHRONULAC30 ML PO
[2020-05-15 15:00] VITALS: Ht 162.6 cm; Wt 97.7 kg
[2020-05-15 15:32] LABS: BASOPHILS 0.4 % (0-2); EOSINOPHILS 2.3 % (0-7); HEMATOCRIT 40.4 % (36.0-48.0); HEMOGLOBIN 12.9 g/dL (12-16); IMMATURE GRANULOCYTES 0.3 % (0-5); MCH 26.9 pg (26.0-34.0); MCHC 31.9 g/dL (31.0-37.0); MCV 84.2 fL (80.0-100.0); MEAN PLATELET VOLUME 9.1 fL (7.4-10.4); MONOCYTES 6.3 % (2-11); NEUTROPHILS 69.7 % (40-80); RDW 14.9 % (11.5-14.5); WBC 7.8 10x3/uL (4.8-10.8)
[2020-05-15 15:35] LABS: PLATELET COUNT 217 10x3/uL (130-400)
[2020-05-15 15:47] LABS: CALC OSMOLALITY 272 mosm/kg (275-300); CALCIUM 9.2 mg/dL (8.5-10.1); CHLORIDE - SERUM 99 mmol/L (98-107); CREATININE - SERUM 1.3 mg/dL (0.6-1.3); GLUCOSE 108 mg/dL (74-106); POTASSIUM - SERUM 4.1 mmol/L (3.5-5.1); SODIUM 135 mmol/L (136-145); UREA NITROGEN 18 mg/dL (7-18); eGFR NON AFRICAN AMERICAN 43 mL/min (90-120)
[2020-05-15 15:56] LABS: ALBUMIN 3.3 g/dL (3.4-5.0); ALKALINE PHOSPHATASE 145 U/L (30-120); ALT (SGPT) 16 U/L (10-68); AMYLASE - SERUM 29 U/L (25-115); BILIRUBIN - TOTAL 0.28 mg/dL (0.2-1.3); PROTEIN - SERUM 7.1 g/dL (6.4-8.2); TROPONIN-I < 0.017 ng/mL (0.000-0.060)
[2020-05-15 16:04] LABS: BILIRUBIN NEGATIVE (NEGATIVE); GLUCOSE NEGATIVE (NEGATIVE); KETONE NEGATIVE (NEGATIVE); NITRITE NEGATIVE (NEGATIVE); UROBILINOGEN NORMAL (NORMAL)
[2020-05-15 16:12] LABS: LIPASE 43 U/L (73-393)
[2020-05-15] MEDS ORDERED: CHRONULAC30 ML PO (17:15)
[2020-05-15 18:08] VITALS: BP 170/76
== END 2020-05-15 18:09 | disposition home or self-care (01) ==
LOC: D.ER 14:57
PROVIDERS: Emergency Medicine
DX: K59.00 Constipation, unspecified (principal); R10.32 Left lower quadrant pain; I10 Essential (primary) hypertension